=== PATIENT | female | born 2000 | race Hispanic/Latino ===

== ENCOUNTER 2018-02-26 16:09 | Emergency (ER) | payer SELFPAY ==
--- NOTE | 2018-02-26 19:50 | Emergency Department Report ---
ED Female HPI - General Chief complaint: Urogenital-Female Stated complaint: STD CHECK Time Seen by Provider: 02/26/18 19:24 Source: patient Mode of arrival: Ambulatory Limitations: No Limitations - History of Present Illness Initial comments: Patient is a 17-year-old white female patient advised positive test last month however took a Plan B and experienced vaginal bleeding however started to have vaginal discharge 2 weeks later presents for vaginal discharge today white thick malodorous started menses today today would be normal menses for this patient complains of abdominal cramping partner advised her to be treated for STI , patient denies nausea vomiting no back pain or shortness of breath no fever or chills. MD Complaint: vaginal discharge, possible STD Onset/Timin -: week(s) Severity: moderate Severity scale (0 -10): 4 Quality: cramping Consistency: intermittent Improves with: none Worsens with: none Are you Now?: No Last Menstrual Period: 02/26/18 EDC: 12/03/18 Associated Symptoms: vaginal discharge, vaginal bleeding, abdominal pain, other (STI Exposure ). denies: headaches, loss of appetite, dysuria, hematuria, rash , seizure, shortness of breath, syncope, weakness - Related Data Sexually active: Yes : 1 Para: 0 A: 1 Previous Rx's Medication Instructions Recorded Last Taken Type Cephalexin [Keflex] 500 mg PO BID #14 capsule 02/26/18 Unknown Rx metroNIDAZOLE [Flagyl] 500 mg PO Q12HR #14 tab 02/26/18 Unknown Rx Allergies Allergy/AdvReac Type Severity Reaction Status Date / Time No Known Allergies Allergy Verified 02/26/18 16:11 ED Review of Systems ROS: Stated complaint: STD CHECK Other details as noted in HPI Constitutional: denies: chills, fever Eyes: denies: eye pain, eye discharge, vision change ENT: denies: ear pain, throat pain Respiratory: denies: cough, shortness of breath, wheezing Cardiovascular: denies: chest pain, palpitations Endocrine: no symptoms reported Gastrointestinal: abdominal pain. denies: nausea, vomiting, diarrhea, constipation, hematemesis, melena, hematochezia Genitourinary: discharge (white thick malodorous ) Musculoskeletal: denies: back pain, joint swelling, arthralgia Skin: denies: rash, lesions Neurological: denies: headache, weakness, paresthesias Psychiatric: denies: anxiety, depression Hematological/Lymphatic: denies: easy bleeding, easy bruising ED Past Medical Hx - Past Medical History Previous Medical History?: No - Surgical History Past Surgical History?: Yes Additional Surgical History: labia minora surgery - Social History Smoking Status: Never Smoker Substance Use Type: None - Medications Home Medications: Home Medications Medication Instructions Recorded Confirmed Last Taken Type Cephalexin [Keflex] 500 mg PO BID #14 capsule 02/26/18 Unknown Rx metroNIDAZOLE [Flagyl] 500 mg PO Q12HR #14 tab 02/26/18 Unknown Rx ED Physical Exam - General Limitations: No Limitations General appearance: alert, in no apparent distress - Head Head exam: Present: atraumatic - Eye Eye exam: Present: normal appearance - ENT ENT exam: Present: mucous membranes moist - Neck Neck exam: Present: normal inspection - Respiratory Respiratory exam: Present: normal lung sounds bilaterally. Absent: respiratory distress, wheezes, stridor, chest wall tenderness - Cardiovascular Cardiovascular Exam: Present: regular rate, normal rhythm, normal heart sounds. Absent: systolic murmur, diastolic murmur, rubs, gallop - GI/Abdominal GI/Abdominal exam: Present: soft, normal bowel sounds. Absent: distended, tenderness, guarding, rebound, rigid, organomegaly, mass, bruit, pulsatile mass , hernia - Rectal Rectal exam: Present: deferred - External exam: Present: normal external exam. Absent: swelling, lesions, lacerations, ecchymosis, bleeding Speculum exam: Present: erythema (malodorours, no CMT, ), vaginal bleeding. Absent: vaginal discharge, cervical discharge, foreign body, tissue, laceration Bi-manual exam: Absent: cervical motion tendernes, adnexal tenderness, adnexal mass, uterine enlargement, uterine tenderness - Extremities Exam Extremities exam: Present: normal inspection, full ROM. Absent: tenderness - Back Exam Back exam: Present: normal inspection, full ROM. Absent: tenderness, CVA tenderness (R), CVA tenderness (L), muscle spasm, paraspinal tenderness, vertebral tenderness - Neurological Exam Neurological exam: Present: alert, oriented X3, CN II-XII intact, normal gait, reflexes normal - Psychiatric Psychiatric exam: Present: normal affect, normal mood - Skin Skin exam: Present: warm, dry, intact, normal color. Absent: rash ED Course Vital Signs 02/26/18 16:11 Temperature 98 F Pulse Rate 92 H Respiratory 20 Rate Blood Pressure 147/76 O2 Sat by Pulse 98 Oximetry ED Medical Decision Making - Lab Data Laboratory Tests 02/26/18 02/26/18 19:15 19:38 HCG, Quant 0.840 Urine Color Yellow Urine Turbidity Clear Urine pH 5.0 Ur Specific Harper 1.027 Urine Protein 30 mg/dl Urine Glucose (UA) Neg Urine Ketones Neg Urine Blood Neg Urine Nitrite Neg Urine Bilirubin Neg Urine Urobilinogen 4.0 Ur Leukocyte Esterase Sm Urine WBC (Auto) 20.0 H Urine RBC (Auto) 3.0 U Epithel Cells (Auto) 9.0 Urine Bacteria (Auto) 1+ Urine Mucus 1+ - Medical Decision Making HCG is negative patient treated for STD exposure urine noted for leuks white blood cells plan DC to home prescription for Flagyl and Keflex patient will follow up with [facility] [facility] in 2-3 days as scheduled for follow-up patient verbalizes understanding and agreement with discharge plan will be DC'd home at this time is stable condition Critical care attestation.: If time is entered above; I have spent that time in minutes in the direct care of this critically ill patient, excluding procedure time. ED Disposition Clinical Impression: STD exposure UTI (urinary tract infection) Qualifiers: Urinary tract infection type: acute cystitis Hematuria presence: without hematuria Qualified Code(s): N30.00 - Acute cystitis without hematuria Disposition: DC-01 TO HOME OR SELFCARE Is pt being admited?: No Does the pt Need Aspirin: No Condition: Good Instructions: Sexually Transmitted Diseases (ED), Urinary Tract Infection in Women (ED) Prescriptions: Cephalexin [Keflex] 500 mg PO BID #14 capsule metroNIDAZOLE [Flagyl] 500 mg PO Q12HR #14 tab Referrals: [facility] [Outside] - 3-5 Days Forms: Work/School Release Form(ED) Time of Disposition: 20:54
[2018-02-26 19:54] LABS: Bacteria,Urine 1+ /HPF (Negative); Bilirubin,Urine NEG (Negative); Blood,Urine NEG (Negative); Color,Urine Yellow (Yellow); Mucus,Urine 1+ /HPF
[2018-02-26] MEDS ORDERED: ROCEPHIN IM ONE (20:09)
[2018-02-26] MEDS ORDERED: ZITHROMAX PO ONE (20:09)
[2018-02-26] MEDS ORDERED: XYLOCAINE 1% MPF 5 mL INFILTRATI ONE (20:09)
[2018-02-26 21:05] VITALS: BP 126/64
== END 2018-02-26 21:03 | disposition home or self-care (01) ==
LOC: ED 16:09
DX: N30.00 Acute cystitis without hematuria (principal); Z20.2 Contact with and (suspected) exposure to infections with a predominantly sexual mode of transmission; Z98.890 Other specified postprocedural states
CPT/HCPCS: 36415; 81001; 84702; 87210; 87591; 96372; 99284; J0696

== ENCOUNTER 2018-11-08 17:40 | Emergency (ER) | payer OTHER ==
[2018-11-08 17:48] VITALS: BP 115/66
[2018-11-08] MEDS ORDERED: BOOSTRIX IM ONE (17:52)
--- NOTE | 2018-11-08 17:52 | Emergency Department Report ---
Chief Complaint: Animal Bite Stated Complaint: DOG BITE/FINGER Time Seen by Provider: 11/08/18 17:51 - HPI History of Present Illness: BIT BY HER DOG IT HAS HAD SHOTS PT NEEDS TDAP RX NONE PMH GONORRHEA WOUND LEFT INDEX FINGER MSE COMPLETED - Exam Vital Signs: Vital Signs 11/08/18 17:46 Temperature 98.6 F Pulse Rate 83 Respiratory 16 Rate Blood Pressure 115/66 [Left] O2 Sat by Pulse 100 Oximetry MSE screening note: Focused history and physical exam performed. Due to findings the following was ordered: ED Disposition for MSE Condition: Stable
[2018-11-08] MEDS ORDERED: IBUPROFEN PO ONE (17:53)
--- NOTE | 2018-11-08 19:16 | Emergency Department Report ---
ED Animal Bite HPI - General Chief Complaint: Animal Bite Stated Complaint: DOG BITE/FINGER Time Seen by Provider: 11/08/18 17:51 Source: patient Mode of arrival: Ambulatory Limitations: No Limitations - History of Present Illness Initial Comments: This is a 18-year-old female who presents with lacerations and puncture wound to left second finger from a dog bite. Patient states 2 dogs at her home fighting and she attempted to break them up. When she put her hand down one of the dogs lets on to her second left finger. Patient states decr eased range of motion, laceration, swelling, and a puncture wound. States she cleaned area of with water and came directly for evaluation. MD Complaint: animal bite Onset/Timin -: minutes(s) Left: Hand (second finger) Animal: dog Animal Control Notified: No Description: household pet Mechanism: bite Pain Description: intermittent Severity scale (0 -10): 10 Context: animals fighting Associated Symptoms: bleeding. denies: erythema, discharge from wound, fever, chills, rash, loss of consciousness, cough, headache, diaphoresis, shortness of breath Treatments Prior to Arrival: irrigation - Related Data Patient Tetanus UTD: No Previous Rx's Medication Instructions Recorded Last Taken Type Amoxicillin/Potassium Clav 1 each PO BID #14 tablet 11/08/18 Unknown Rx [Augmentin 875-125 Tablet] Ibuprofen [Motrin 800 MG tab] 800 mg PO Q8HR PRN #20 tablet 11/08/18 Unknown Rx Allergies Allergy/AdvReac Type Severity Reaction Status Date / Time No Known Allergies Allergy Verified 02/26/18 16:11 ED Review of Systems ROS: Stated complaint: DOG BITE/FINGER Other details as noted in HPI Constitutional: denies: chills, fever Respiratory: denies: cough, shortness of breath, wheezing Cardiovascular: denies: chest pain, palpitations Gastrointestinal: denies: abdominal pain, nausea, diarrhea Musculoskeletal: denies: back pain, joint swelling, arthralgia Skin: lesions. denies: rash Neurological: denies: headache, weakness, paresthesias Psychiatric: denies: anxiety, depression ED Past Medical Hx - Past Medical History Previous Medical History?: No - Surgical History Past Surgical History?: Yes Additional Surgical History: labia minora surgery - Social History Smoking Status: Never Smoker Substance Use Type: None - Medications Home Medications: Home Medications Medication Instructions Recorded Confirmed Last Taken Type Amoxicillin/Potassium Clav 1 each PO BID #14 tablet 11/08/18 Unknown Rx [Augmentin 875-125 Tablet] Ibuprofen [Motrin 800 MG tab] 800 mg PO Q8HR PRN #20 tablet 11/08/18 Unknown Rx ED Physical Exam - General Limitations: No Limitations General appearance: alert, in no apparent distress - Respiratory Respiratory exam: Present: normal lung sounds bilaterally. Absent: respiratory distress - Cardiovascular Cardiovascular Exam: Present: regular rate, normal rhythm. Absent: systolic murmur, diastolic murmur, rubs, gallop - GI/Abdominal GI/Abdominal exam: Present: soft, normal bowel sounds - Neurological Exam Neurological exam: Present: alert, oriented X3 - Psychiatric Psychiatric exam: Present: normal affect, normal mood - Skin Skin exam: Present: warm, dry, normal color, other (2 cm laceration to the 2nd proximal phalanx, palmar, tenderness, 2 mm puncture wound to 2nd medial phalanx, no surrounding cellulitis, swelling). Absent: intact, rash ED Course Vital Signs 11/08/18 11/08/18 11/08/18 17:46 17:50 18:44 Temperature 98.6 F 98.6 F Pulse Rate 83 83 Respiratory 16 16 18 Rate Blood Pressure 115/66 Blood Pressure 115/66 [Left] O2 Sat by Pulse 100 99 Oximetry Critical care attestation.: If time is entered above; I have spent that time in minutes in the direct care of this critically ill patient, excluding procedure time. ED Disposition Clinical Impression: Dog bite of finger Qualifiers: Encounter type: initial encounter Qualified Code(s): S61.259A - Open bite of unspecified finger without damage to nail, initial encounter; W54.0XXA - Bitten by dog, initial encounter Disposition: DC-01 TO HOME OR SELFCARE Is pt being admited?: No Does the pt Need Aspirin: No Condition: Stable Instructions: Animal Bite (ED) Additional Instructions: Keep wound clean with soap and water twice a day. Complete full course of antibiotics as prescribed. Take ibuprofen or Tylenol every 6-8 hours as needed for pain. Follow-up with your primary care provider in the next 2-3 days if symptoms are not improving as discussed. Sounds emergency room if increased swelling, foul smelling drainage from wound, redness around the wound, and increased pain. Prescriptions: Amoxicillin/Potassium Clav [Augmentin 875-125 Tablet] 1 each PO BID #14 tablet Ibuprofen [Motrin 800 MG tab] 800 mg PO Q8HR PRN #20 tablet PRN Reason: Pain , Severe (7-10) Referrals: WILIAN PELLETIER MD [Primary Care Provider] - 3-[address] [facility] [place] [Outside] - 3-5 Days [facility] [place] [Outside] - 3-5 Days Forms: Work/School Release Form(ED) Time of Disposition: 21:29 ED Medical Decision Making - Radiology Data Radiology results: report reviewed PROCEDURE: XR FINGER(S) 2+V LT TECHNIQUE: Left second finger radiographs, including AP, lateral, and oblique views. HISTORY: puncture wound, laceration, dog bite COMPARISONS: None . FINDINGS: Fracture (s) and/or Dislocation(s): None . Alignment: Normal . Joint space(s): Normal . Soft tissues: There is soft tissue swelling of the second digit. . Bone mineralization: Normal . Foreign bodies: None . IMPRESSION: There is no fracture or malalignment. There is soft tissue swelling of the second digit. - Medical Decision Making Patient was examined by me. Vitals are normal and patient is in no acute distress. Obtained a x-ray of the left fingers. X-rays dictated by radiologist and report reviewed by myself. There is no fracture or malalignment. There is soft tissue swelling of the second digit. Patient informed of results. Wound irrigated with normal saline and Betadine. A sterile dressing with 4 x 4 and surgical tape applied to wound. Patient given tetanus vaccine. Start Augmentin prophylactically and ibuprofen. Plan discussed with patient to discharge home and treat outpatient. He agrees with ER plan. Patient discharged home in stable condition. Follow up with PCP in 2-3 days.
--- NOTE | 2018-11-08 21:15 | XRay Report ---
PROCEDURE: XR FINGER(S) 2+V LT TECHNIQUE: Left second finger radiographs, including AP, lateral, and oblique views. HISTORY: puncture wound, laceration, dog bite COMPARISONS: None . FINDINGS: Fracture (s) and/or Dislocation(s): None . Alignment: Normal . Joint space(s): Normal . Soft tissues: There is soft tissue swelling of the second digit. . Bone mineralization: Normal . Foreign bodies: None . IMPRESSION: There is no fracture or malalignment. There is soft tissue swelling of the second digit. . This document is electronically signed by Johnson Kramer MD., November 08 2018 09:13:48 PM ET
== END 2018-11-08 21:51 | disposition home or self-care (01) ==
LOC: ED 17:40
DX: S61.251A Open bite of left index finger without damage to nail, initial encounter (principal); W54.0XXA Bitten by dog, initial encounter; Y93.89 Activity, other specified; Y92.89 Other specified places as the place of occurrence of the external cause; Y99.8 Other external cause status
CPT/HCPCS: 90471; 90715

== ENCOUNTER 2019-01-15 15:18 | Emergency (ER) | payer SELFPAY ==
[2019-01-15 16:30] VITALS: BP 109/68
--- NOTE | 2019-01-26 09:01 | Emergency Department Report ---
Blank Doc - Documentation Documentation: Patient left without being seen.
== END 2019-01-15 19:58 | disposition left against medical advice (07) ==
LOC: ED 15:18
DX: R21 Rash and other nonspecific skin eruption (principal); Z53.21 Procedure and treatment not carried out due to patient leaving prior to being seen by health care provider